=== PATIENT | male | born 1955 | race Caucasian/White ===

== ENCOUNTER 2021-01-24 10:30 | Inpatient (IN) | payer MEDICARE ==
[2021-03-12 10:56] VITALS: BMI 33.0
[2021-03-13] MEDS ORDERED: Tranexamic Acid 1,000 MG/10 ML VIAL ONE ×2 (06:04→10:53)
[2021-03-13] MEDS ORDERED: Fentanyl 100 MCG/2 ML VIAL ONE (06:04)
[2021-03-13] MEDS ORDERED: Sodium Chloride 0.9% 100 ML ONE ×2 (06:04→10:54)
[2021-03-13] MEDS ORDERED: Vancomycin 1.5 GRAM/300 ML BAG 1.5 GM in Premix Bag 1 BAG IVPB SCH ×2 (06:15→19:00)
[2021-03-13] MEDS ORDERED: EPINEPHrine 1 MG/ML AMP ONE (06:32)
[2021-03-13] MEDS ORDERED: Bupivacaine 0.25% HCL 30 ML VIAL ONE (06:32)
[2021-03-13] MEDS ORDERED: Midazolam HCl 2 mg/2 ml Vial ONE (06:41)
[2021-03-13] MEDS ORDERED: Ondansetron PF 4 MG/2 ML Vial ONE (06:43)
[2021-03-13] MEDS ORDERED: PHENYLEPHRINE-NS 100 MCG/ML 10 ML SYRINGE ONE (06:43)
[2021-03-13] MEDS ORDERED: Dexamethasone 20 MG/5 ML VIAL ONE (06:43)
[2021-03-13] MEDS ORDERED: PROPOFOL 200 MG/20 ML VIAL ONE (06:43)
[2021-03-13] MEDS ORDERED: diphenhydrAMINE 50 MG/ML VIAL ONE (06:43)
[2021-03-13] MEDS ORDERED: Bupivacaine HCl 0.5%/Epinephrine 1:200,000/PF 30 ml Vial ONE (06:43)
[2021-03-13] MEDS ORDERED: Lidocaine 1% PF 5 ML VIAL ONE (06:43)
[2021-03-13] MEDS ORDERED: Scopolamine 1.5 mg/72 hour Patch ONE (06:46)
[2021-03-13] MEDS ORDERED: ceFAZolin 2 GM/DEX 5% 100 ML BAG ONE (07:00)
[2021-03-13] MEDS ORDERED: Multivitamin W/ Minerals 1 TAB PO SCH (09:00)
[2021-03-13] MEDS ORDERED: diphenhydrAMINE 25 MG CAP PO PRN (09:12)
[2021-03-13] MEDS ORDERED: Promethazine HCl 25 MG/ML VIAL IM PRN ×3 (09:12→09:30)
[2021-03-13] MEDS ORDERED: Acetaminophen 325 MG TAB PO PRN (09:12)
[2021-03-13] MEDS ORDERED: Zolpidem Tartrate 5 MG TAB PO PRN ×2 (09:12→09:30)
[2021-03-13] MEDS ORDERED: HYDROcodone/Acetaminophen 10/325 mg Tablet PO PRN ×3 (09:12→09:30)
[2021-03-13] MEDS ORDERED: Fentanyl 100 MCG/2 ML VIAL SLOW IVP PRN ×2 (09:12)
[2021-03-13] MEDS ORDERED: traMADol HCl 50 MG TAB PO PRN ×3 (09:12→09:30)
[2021-03-13] MEDS ORDERED: Ondansetron PF 4 MG/2 ML Vial IVP PRN ×2 (09:12→09:30)
[2021-03-13] MEDS ORDERED: Ketorolac Tromethamine 30 MG/ML VIAL IVP PRN (09:12)
[2021-03-13] MEDS ORDERED: Ondansetron HCl/PF 4 MG/2 ML Vial IVP PRN (09:25)
[2021-03-13] MEDS ORDERED: Promethazine HCl 25 MG/ML VIAL IVPB PRN (09:25)
[2021-03-13] MEDS ORDERED: Fentanyl 100 MCG/2 ML VIAL IV PRN (09:26)
[2021-03-13] MEDS ORDERED: Ropivacaine 0.2% 550 ML 550 ML NERVE BLCK SCH (09:30)
[2021-03-13] MEDS ORDERED: Tranexamic Acid 1,000 MG/10 ML VIAL IVP SCH (11:15)
[2021-03-13] MEDS: Aspirin 81 mg Enteric Coated Tablet PO SCH ×2 (13:50→20:45)
[2021-03-13] MEDS: Ferrous Gluconate 324 MG TAB PO SCH ×2 (13:50→20:46)
[2021-03-13] MEDS: Senokot S 8.6-50 MG TAB PO SCH ×2 (13:51→20:46)
[2021-03-13] MEDS: Sodium Chloride 0.9% 1,000 ML IV SCH ×2 (13:51→18:16)
[2021-03-13] MEDS ORDERED: CEFAZOLIN 2 GM in Premix Bag 1 BAG IVPB SCH (14:00)
[2021-03-13] MEDS: CEFAZOLIN 2 GM in Sodium Chloride 0.9% 100 ML IVPB SCH ×2 (15:47→21:54)
[2021-03-13] MEDS: Famotidine 20 MG TAB PO SCH (20:45)
[2021-03-14] MEDS: Sodium Chloride 0.9% 1,000 ML IV SCH ×3 (02:37→19:22)
[2021-03-14] MEDS: Levothyroxine Sodium 25 MCG TAB PO SCH (05:57)
[2021-03-14 06:02] LABS: Hemoglobin 11.3 g/dL (14.0-18.0); Mean Corpuscular HGB CONC 34.3 g/dL (32.0-36.0); Mean Corpuscular Hemoglobin 29.2 pg (27.0-31.0); Mean Platelet Volume 7.8 fL (7.4-10.4); Platelet Count 253 thou/uL (130-400); RBC Distribution Width 12.5 % (11.5-14.5); Red Blood Cell (RBC) Count 3.87 mill/uL (4.70-6.10); White Blood Cell (WBC) Count 12.6 thou/uL (4.8-10.8)
[2021-03-14 06:12] LABS: Anion Gap 13 mmol/L (10-20); BUN (Urea Nitrogen) 15 mg/dL (8.4-25.7); Calc. Creatinine Clearance 89 mL/min (70-130); Calcium 8.4 mg/dL (7.8-10.44); Carbon Dioxide 22 mmol/L (23-31); Chloride 104 mmol/L (98-107); Glucose 134 mg/dL (80-115); Potassium 3.9 mmol/L (3.5-5.1); Sodium 135 mmol/L (136-145)
[2021-03-14] MEDS ORDERED: Acetaminophen 325 MG TAB PO PRN (08:03)
[2021-03-14] MEDS ORDERED: diphenhydrAMINE 25 MG CAP PO PRN (08:03)
[2021-03-14] MEDS ORDERED: Ondansetron PF 4 MG/2 ML Vial IVP PRN (08:04)
[2021-03-14] MEDS ORDERED: traMADol HCl 50 MG TAB PO PRN ×2 (08:04)
[2021-03-14] MEDS ORDERED: Promethazine HCl 25 MG/ML VIAL IM PRN (08:05)
[2021-03-14] MEDS ORDERED: Fentanyl 100 MCG/2 ML VIAL IV PRN (08:05)
[2021-03-14] MEDS: Senokot S 8.6-50 MG TAB PO SCH ×2 (08:23→19:54)
[2021-03-14] MEDS: Ferrous Gluconate 324 MG TAB PO SCH ×2 (08:23→16:15)
[2021-03-14] MEDS: Multivitamin W/ Minerals 1 TAB PO SCH (08:24)
[2021-03-14] MEDS: Aspirin 81 mg Enteric Coated Tablet PO SCH ×2 (08:31→19:53)
[2021-03-14] MEDS ORDERED: Hydrochlorothiazide 25 MG TAB PO SCH (09:00)
[2021-03-14] MEDS ORDERED: Losartan 25 MG TAB PO SCH (09:00)
[2021-03-14] MEDS: Famotidine 20 MG TAB PO SCH (19:54)
[2021-03-14] MEDS: HYDROcodone/Acetaminophen 10/325 mg Tablet PO PRN (22:33)
[2021-03-15] MEDS: Sodium Chloride 0.9% 1,000 ML IV SCH (05:01)
[2021-03-15] MEDS: Levothyroxine Sodium 25 MCG TAB PO SCH (05:43)
[2021-03-15] MEDS: HYDROcodone/Acetaminophen 10/325 mg Tablet PO PRN (06:30)
[2021-03-15 07:55] VITALS: BP 152/79; TEMP 99.3
[2021-03-15] MEDS: Senokot S 8.6-50 MG TAB PO SCH (09:09)
[2021-03-15] MEDS: Aspirin 81 mg Enteric Coated Tablet PO SCH (09:09)
[2021-03-15] MEDS: Ferrous Gluconate 324 MG TAB PO SCH (09:09)
[2021-03-15] MEDS: Multivitamin W/ Minerals 1 TAB PO SCH (09:09)
== END 2021-03-15 12:00 | disposition home or self-care (01) | DRG 470 ==
LOC: 2NO 03-13 05:33 → PACU-TCU 03-13 11:27 → SURG B 03-13 11:38
PROVIDERS: ADMIT Orthopaedic Surgery; ATTEND Orthopaedic Surgery
PROC: 0SRC0J9 Replacement of Right Knee Joint with Synthetic Substitute, Cemented, Open Approach (ICD-10-PCS; principal; 2021-03-13)
DX: M17.11 Unilateral primary osteoarthritis, right knee (principal); Q60.0 Renal agenesis, unilateral; N17.9 Acute kidney failure, unspecified; I12.9 Hypertensive chronic kidney disease with stage 1 through stage 4 chronic kidney disease, or unspecified chronic kidney disease; E78.5 Hyperlipidemia, unspecified; E03.9 Hypothyroidism, unspecified; E11.22 Type 2 diabetes mellitus with diabetic chronic kidney disease; N40.0 Benign prostatic hyperplasia without lower urinary tract symptoms; G47.30 Sleep apnea, unspecified; D63.1 Anemia in chronic kidney disease; N18.30 Chronic kidney disease, stage 3 unspecified; E66.9 Obesity, unspecified; Z68.33 Body mass index [BMI] 33.0-33.9, adult; Z88.0 Allergy status to penicillin; Z90.49 Acquired absence of other specified parts of digestive tract; Z90.79 Acquired absence of other genital organ(s); Z79.899 Other long term (current) drug therapy; Z79.82 Long term (current) use of aspirin; Z79.890 Hormone replacement therapy
CPT/HCPCS: 36415; 80048; 85027; A4306; C1713; C1776; J0171; J0690; J1100; J1200; J2250; J2405; J2704; J2795; J3010; J3370; J3490; S0020

== ENCOUNTER 2021-01-24 10:41 | Outpatient (CLI) | payer BC, MEDICARE ==
[2021-01-24 12:28] LABS: #Basophils 0.1 10x3/uL (0.0-0.2); #Eosinphils 0.2 10x3/uL (0.0-0.5); #Monocytes 0.6 10x3/uL (0.0-1.1); #Neutrophils 4.1 10x3/uL (1.5-8.4); %Basophils 0.7 % (0.0-2.0); %Eosinophils 2.9 % (0.0-6.0); %Lymphocytes 30.4 % (18.0-47.0); %Monocytes 8.6 % (0.0-10.0); Hemoglobin 12.8 g/dL (13.5-17.5); Mean Corpuscular HGB CONC 32.9 g/dL (32.0-36.0); Mean Corpuscular Hemoglobin 28.7 pg (27.0-33.0); Mean Corpuscular Volume 87.2 fl (81.2-95.1); Mean Platelet Volume 10.6 fl (7.4-10.4); Platelet Count 268 10x3/uL (150-450); RBC Distribution Width 13.5 % (11.5-14.5); Red Blood Cell (RBC) Count 4.46 10x6/uL (4.32-5.72); White Blood Cell (WBC) Count 7.2 10x3/uL (3.5-10.5)
[2021-01-24 12:43] LABS: INR-International Normal Ratio 0.9; Prothrombin Time 10.3 sec (9.5-12.1)
[2021-01-24 13:16] LABS: Anion Gap 14 mmol/L (10-20); BUN (Urea Nitrogen) 16 mg/dL (8.4-25.7); Calc. Creatinine Clearance 0 mL/min (70-130); Calcium 9.8 mg/dL (7.8-10.44); Carbon Dioxide 26 mmol/L (23-31); Chloride 105 mmol/L (98-107); Glucose 113 mg/dL (80-115); Potassium 4.4 mmol/L (3.5-5.1); Sodium 141 mmol/L (136-145)
[2021-01-25 10:34] LABS: SARS-CoV-2 PCR by NAA Not Detected (NotDetected)
== END 2021-01-24 10:42 | disposition home or self-care (01) ==
LOC: LABBT 10:41
PROVIDERS: ATTEND Orthopaedic Surgery
DX: Z01.818 Encounter for other preprocedural examination (principal); M17.0 Bilateral primary osteoarthritis of knee; Z20.822 Contact with and (suspected) exposure to COVID-19
CPT/HCPCS: 80048; 85025; 85610; 87081; 93005; U0003; U0005; 93010

== ENCOUNTER 2021-02-25 10:29 | Outpatient (CLI) | payer MEDICARE | END 2021-02-25 10:30 | disposition home or self-care (01) | LOC: TBSIIMAG 10:29 | PROVIDERS: ATTEND Neurological Surgery | DX: M47.22 Other spondylosis with radiculopathy, cervical region (principal) | CPT/HCPCS: 72141 ==

== ENCOUNTER 2021-03-08 10:17 | Outpatient (CLI) | payer MEDICARE ==
[2021-03-08 11:14] LABS: Hemoglobin 12.6 g/dL (13.5-17.5); Mean Corpuscular HGB CONC 32.6 g/dL (32.0-36.0); Mean Corpuscular Hemoglobin 28.2 pg (27.0-33.0); Mean Corpuscular Volume 86.4 fl (81.2-95.1); Mean Platelet Volume 10.3 fl (7.4-10.4); Platelet Count 263 10x3/uL (150-450); RBC Distribution Width 13.5 % (11.5-14.5); Red Blood Cell (RBC) Count 4.47 10x6/uL (4.32-5.72); White Blood Cell (WBC) Count 6.2 10x3/uL (3.5-10.5)
[2021-03-08 11:38] LABS: INR-International Normal Ratio 0.9; Prothrombin Time 10.3 sec (9.5-12.1)
[2021-03-08 11:41] LABS: Anion Gap 13 mmol/L (10-20); BUN (Urea Nitrogen) 16 mg/dL (8.4-25.7); Calc. Creatinine Clearance 0 mL/min (70-130); Calcium 10.1 mg/dL (7.8-10.44); Carbon Dioxide 25 mmol/L (23-31); Chloride 106 mmol/L (98-107); Glucose 126 mg/dL (80-115); Potassium 4.3 mmol/L (3.5-5.1); Sodium 140 mmol/L (136-145)
[2021-03-08 18:03] LABS: SARS-CoV-2 PCR by NAA Not Detected (NotDetected)
== END 2021-03-08 10:18 | disposition home or self-care (01) ==
LOC: LABBT 10:17
PROVIDERS: ATTEND Orthopaedic Surgery
DX: Z01.812 Encounter for preprocedural laboratory examination (principal); M17.0 Bilateral primary osteoarthritis of knee; Z20.822 Contact with and (suspected) exposure to COVID-19
CPT/HCPCS: 80048; 85027; 85610; 87081; U0003; U0005

== ENCOUNTER 2021-06-13 13:00 | Inpatient (IN) | payer MEDICARE ==
[2021-06-12 10:20] VITALS: BMI 32.1
[2021-07-10] MEDS ORDERED: Tranexamic Acid 1,000 MG/10 ML VIAL ONE (05:53)
[2021-07-10] MEDS ORDERED: Sodium Chloride 0.9% 100 ML ONE (05:53)
[2021-07-10] MEDS ORDERED: Vancomycin 1.5 GRAM/300 ML BAG 1.5 GM in Premix Bag 1 BAG IVPB SCH ×2 (06:00→19:00)
[2021-07-10] MEDS ORDERED: EPINEPHrine 1 MG/ML AMP ONE (06:26)
[2021-07-10] MEDS ORDERED: Bupivacaine 0.25% HCL 30 ML VIAL ONE (06:26)
[2021-07-10] MEDS ORDERED: Fentanyl 100 MCG/2 ML VIAL ONE ×4 (06:34→09:56)
[2021-07-10] MEDS ORDERED: Lidocaine 1% (PF) 30 ML VIAL ONE (06:34)
[2021-07-10] MEDS ORDERED: Midazolam HCl 2 mg/2 ml Vial ONE (06:34)
[2021-07-10] MEDS ORDERED: Ondansetron PF 4 MG/2 ML Vial ONE ×2 (07:04→09:56)
[2021-07-10] MEDS ORDERED: PROPOFOL 200 MG/20 ML VIAL ONE (07:04)
[2021-07-10] MEDS ORDERED: Bupivacaine HCl 0.5%/Epinephrine 1:200,000/PF 30 ml Vial ONE (07:04)
[2021-07-10] MEDS ORDERED: Lidocaine 1% PF 5 ML VIAL ONE (07:04)
[2021-07-10] MEDS ORDERED: Fentanyl 100 MCG/2 ML VIAL SLOW IVP PRN (07:10)
[2021-07-10] MEDS ORDERED: Ropivacaine 0.2% 550 ML 550 ML NERVE BLCK SCH (07:15)
[2021-07-10] MEDS ORDERED: Promethazine HCl 25 MG/ML VIAL IM PRN ×3 (07:15→09:41)
[2021-07-10] MEDS ORDERED: Ondansetron PF 4 MG/2 ML Vial IVP PRN ×2 (07:15→09:41)
[2021-07-10] MEDS ORDERED: HYDROcodone/Acetaminophen 10/325 mg Tablet PO PRN (07:15)
[2021-07-10] MEDS ORDERED: traMADol HCl 50 MG TAB PO PRN ×2 (07:15)
[2021-07-10] MEDS ORDERED: Zolpidem Tartrate 5 MG TAB PO PRN ×2 (07:15→09:41)
[2021-07-10] MEDS ORDERED: Ondansetron HCl/PF 4 MG/2 ML Vial IVP PRN (09:18)
[2021-07-10] MEDS ORDERED: Promethazine HCl 25 MG/ML VIAL IVPB PRN (09:18)
[2021-07-10] MEDS ORDERED: PACU-Morphine 4MG/ML VIAL SLOW IVP PRN (09:18)
[2021-07-10] MEDS ORDERED: HYDROmorphone 2 MG/ML VIAL SLOW IVP PRN (09:18)
[2021-07-10] MEDS ORDERED: diphenhydrAMINE 25 MG CAP PO PRN (09:41)
[2021-07-10] MEDS ORDERED: Acetaminophen 325 MG TAB PO PRN (09:41)
[2021-07-10] MEDS: HYDROcodone/Acetaminophen 10/325 mg Tablet PO PRN ×2 (14:02→20:46)
[2021-07-10] MEDS: CEFAZOLIN 2 GM in Sodium Chloride 0.9% 100 ML IVPB SCH (14:03)
[2021-07-10] MEDS: Ferrous Gluconate 324 MG TAB PO SCH (20:48)
[2021-07-10] MEDS: Senokot S 8.6-50 MG TAB PO SCH (20:48)
[2021-07-10] MEDS: Aspirin 81 mg Enteric Coated Tablet PO SCH (20:49)
[2021-07-11] MEDS: CEFAZOLIN 2 GM in Sodium Chloride 0.9% 100 ML IVPB SCH
[2021-07-11 05:16] LABS: Hemoglobin 10.7 g/dL (14.0-18.0); Mean Corpuscular HGB CONC 33.9 g/dL (32.0-36.0); Mean Corpuscular Volume 85.5 fL (78.0-98.0); Mean Platelet Volume 7.6 fL (7.4-10.4); Platelet Count 231 thou/uL (130-400); RBC Distribution Width 12.9 % (11.5-14.5); White Blood Cell (WBC) Count 9.8 thou/uL (4.8-10.8)
[2021-07-11] MEDS: HYDROcodone/Acetaminophen 10/325 mg Tablet PO PRN ×3 (07:55→21:42)
[2021-07-11] MEDS: Aspirin 81 mg Enteric Coated Tablet PO SCH ×2 (07:55→19:44)
[2021-07-11] MEDS: Senokot S 8.6-50 MG TAB PO SCH ×2 (07:56→19:44)
[2021-07-11] MEDS: Multivitamin W/ Minerals 1 TAB PO SCH (07:56)
[2021-07-11] MEDS: Ferrous Gluconate 324 MG TAB PO SCH ×2 (07:57→19:44)
[2021-07-12] MEDS: HYDROcodone/Acetaminophen 10/325 mg Tablet PO PRN ×2 (06:58→11:08)
[2021-07-12] MEDS: Ferrous Gluconate 324 MG TAB PO SCH (09:31)
[2021-07-12] MEDS: Aspirin 81 mg Enteric Coated Tablet PO SCH (09:31)
[2021-07-12] MEDS: Senokot S 8.6-50 MG TAB PO SCH (09:31)
[2021-07-12] MEDS: Multivitamin W/ Minerals 1 TAB PO SCH (09:31)
[2021-07-12 12:14] VITALS: BP 137/77; TEMP 98.5
== END 2021-07-12 12:20 | disposition home or self-care (01) | DRG 470 ==
LOC: SURG A 07-10 05:30 → SJJU 07-10 11:44 → EDSTATUS 07-10 13:00
PROVIDERS: ADMIT Orthopaedic Surgery; ATTEND Orthopaedic Surgery
PROC: 0SRD0J9 Replacement of Left Knee Joint with Synthetic Substitute, Cemented, Open Approach (ICD-10-PCS; principal; 2021-07-10)
DX: M17.12 Unilateral primary osteoarthritis, left knee (principal); M96.69 Fracture of other bone following insertion of orthopedic implant, joint prosthesis, or bone plate; Z96.651 Presence of right artificial knee joint; I10 Essential (primary) hypertension; Y65.8 Other specified misadventures during surgical and medical care
CPT/HCPCS: 36415; 85027; A4306; C1713; C1776; J0171; J0690; J2001; J2250; J2405; J2704; J2795; J3010; J3370; J3490; S0020

== ENCOUNTER 2021-06-13 13:02 | Outpatient (CLI) | payer MEDICARE ==
[2021-06-13 13:54] LABS: #Basophils 0.1 10x3/uL (0.0-0.2); #Eosinphils 0.3 10x3/uL (0.0-0.5); #Monocytes 0.6 10x3/uL (0.0-1.1); #Neutrophils 4.2 10x3/uL (1.5-8.4); %Basophils 0.7 % (0.0-2.0); %Eosinophils 3.6 % (0.0-6.0); %Lymphocytes 31.8 % (18.0-47.0); %Monocytes 8.2 % (0.0-10.0); %Neutrophils 55.2 % (40.0-75.0); Hemoglobin 11.8 g/dL (13.5-17.5); Mean Corpuscular HGB CONC 32.3 g/dL (32.0-36.0); Mean Corpuscular Hemoglobin 27.7 pg (27.0-33.0); Mean Corpuscular Volume 85.7 fl (81.2-95.1); Mean Platelet Volume 10.3 fl (7.4-10.4); Platelet Count 284 10x3/uL (150-450); RBC Distribution Width 13.8 % (11.5-14.5); Red Blood Cell (RBC) Count 4.26 10x6/uL (4.32-5.72); White Blood Cell (WBC) Count 7.6 10x3/uL (3.5-10.5)
[2021-06-13 14:12] LABS: Anion Gap 13 mmol/L (10-20); BUN (Urea Nitrogen) 22 mg/dL (8.4-25.7); Calc. Creatinine Clearance 0 mL/min (70-130); Calcium 9.4 mg/dL (7.8-10.44); Carbon Dioxide 28 mmol/L (23-31); Chloride 105 mmol/L (98-107); Glucose 125 mg/dL (80-115); Sodium 142 mmol/L (136-145)
[2021-06-13 14:17] LABS: INR-International Normal Ratio 0.9; Prothrombin Time 10.2 sec (9.5-12.1)
[2021-06-14 13:49] LABS: SARS-CoV-2 PCR by NAA Not Detected (NotDetected)
== END 2021-06-13 13:03 | disposition home or self-care (01) ==
LOC: LABBT 13:02
PROVIDERS: ATTEND Orthopaedic Surgery
DX: Z01.812 Encounter for preprocedural laboratory examination (principal); M17.12 Unilateral primary osteoarthritis, left knee; Z20.822 Contact with and (suspected) exposure to COVID-19
CPT/HCPCS: 80048; 85025; 85610; 87081; U0003; U0005

== ENCOUNTER 2021-07-05 13:00 | Outpatient (CLI) | payer MEDICARE ==
[2021-07-06 00:41] LABS: SARS-CoV-2 PCR by NAA Not Detected (NotDetected)
== END 2021-07-05 13:01 | disposition home or self-care (01) ==
LOC: LABBT 13:00
PROVIDERS: ATTEND Orthopaedic Surgery
DX: Z01.812 Encounter for preprocedural laboratory examination (principal); M17.12 Unilateral primary osteoarthritis, left knee; Z20.822 Contact with and (suspected) exposure to COVID-19
CPT/HCPCS: U0003; U0005